=== PATIENT | male | born 1955 | race Caucasian/White ===

== ENCOUNTER → 2018-06-26 | Outpatient (CLI) | payer OTHER ==
[~2018-06-26] MED LIST: FLUT16SP20 NS; PRAV10TA45 PO
--- NOTE | 2018-06-26 10:15 | EKG ---
FACILITY: [facility] - [place] PATIENT NAME: IGNACIO STONER : [id number] MR: [id number]: [id number] EXAM DATE: ORDERING PHYSICIAN: PAULY DE LEÓN TECHNOLOGIST: JEWEL Arauz Reason : PRE-OP Blood Pressure : / mmHG Vent. Rate : 077 BPM Atrial Rate : 077 BPM P-R Int : 148 ms QRS Dur : 092 ms QT Int : 380 ms P-R-T Axes : 037 053 060 degrees QTc Int : 430 ms Normal sinus rhythm Normal ECG No previous ECGs available Confirmed by SHAD DAMIAN ([id number]) on 06/26/2018 4:59:44 PM Referred By: GENET Confirmed By:SHAD DAMIAN
== END ==
LOC: RESP 10:03
PROVIDERS: ATTEND Surgery
DX: E11.9 Type 2 diabetes mellitus without complications (principal)
CPT/HCPCS: 93005

== ENCOUNTER 2018-07-13 00:34 | Day surgery (SDC) | payer OTHER ==
[~2018-07-13] VITALS: Ht 170.2 cm; Wt 92.5 kg
[~2018-07-13 00:34] MED LIST changes: +ASPI-1471 PO; +LISI-362 PO; +METF-450 PO; +MULT-772 PO; +OMEG-11 PO; +PSYL0.5241 PO
[2018-07-13] MEDS ORDERED: NORMOSOL R SOLN(*) 1000 ML BAG 1,000 ML IV PRN (08:45)
[2018-07-13] MEDS ORDERED: LIDOCAINE/SOD BICARB 8.4% SYR ID ONE (08:45)
[2018-07-13 09:01] VITALS: BP 133/87
[2018-07-13] MEDS ORDERED: LIDOCAINE MPF 1% 5 ML VIAL ONE (09:05)
[2018-07-13] MEDS ORDERED: PROPOFOL EMUL(*) 10MG/ML 20 ML 60 ML ONE (09:05)
[2018-07-13 10:06] VITALS: BP 103/73
--- NOTE | 2018-07-13 10:09 | Short(Outpt) Discharge Summary ---
Discharge Summary Reason for Hosp/Final Diag: (1) Encounter for screening colonoscopy Hospital Course & Plan: pt presented for colonoscopy. he tolerated the procedure well. he will be discharged home when criteria met. Departure Discharge to: Home Discharge Instructions Home Meds Reported Medications Lisinopril (LISINOPRIL) 10 Mg Tablet, 10 MG PO QDAY, TAB 07/11/18 Psyllium Husk (METAMUCIL) 0.52 Gm Capsule, 0.52 GM PO BID, CAPSULE 07/10/18 Aspirin (ASPIR 81) 81 Mg Tablet.dr, 81 MG PO QDAY, TAB 07/10/18 [place]-3 Fatty Acids/Fish Oil (FISH OIL 1,000 MG CAPSULE) 1 Each Capsule, 1 EACH PO BID, CAPSULE 07/10/18 Multivitamin W-Minerals/Lutein (CENTRUM SILVER ULTRA MEN'S TAB) 1 Each Tablet, 1 EACH PO QDAY 07/10/18 Metformin Hcl (METFORMIN HCL) 500 Mg Tablet, 1 TAB PO BID, TAB 07/10/18 Fluticasone Propionate (Flonase) 16 Gm [place], 1 [place] NS BID PRN, 0 Refills 02/15/08 Pravastatin Sodium (Pravachol) 10 Mg Tablet, 5 MG PO QDAY, 0 Refills 02/15/08 Diet: Regular Activity: As Tolerated Special Instructions: repeat colonoscopy in 10 yrs. PAULY DE LEÓN July 13, 2018 10:09
--- NOTE | 2018-07-13 10:17 | NUR ---
1006 SBAR REPORT WAS RECEIVED FROM DR. BONILLA AND LANETTE GARCIA. PATIENT IS BREATHING SPONTANEOUSLY AT A MODERATE RATE AND DEPTH. HE ARRIVED ON 10 LITERS OXYMASK. THIS WAS TURNED TO 3 LITERS ON ARRIVAL. BOWEL SOUNDS ARE ACTIVE. HE IS SLEEPING AT THIS TIME. IS IN THE ROOM. 1010 PATIENT WOKE UP AT THIS TIME 1019 DR. DE LEÓN WAS IN TO SEE PATIENT.
--- NOTE | 2018-07-13 10:22 | NUR ---
1022 PATIENT WAS MOVED TO ROOM AIR
[2018-07-13 10:30] VITALS: BP 102/71
--- NOTE | 2018-07-13 10:33 | NUR ---
1031 PATIENT BEGAN DRINKING WATER AND EATING JELLO
--- NOTE | 2018-07-13 10:35 | OPERATIVE REPORT 1 ---
EVENT DATE: July 13, 2018 SURGEON: Romie Kennedy MD ANESTHESIOLOGIST: Rahul Mauro MD ANESTHESIA: MAC. PAPER SORTER: None. PREOPERATIVE DIAGNOSIS Screening colonoscopy. POSTOPERATIVE DIAGNOSES 1. Screening colonoscopy. 2. Internal and external hemorrhoids. 3. Diverticulosis. PROCEDURE PERFORMED Colonoscopy. FLUIDS IV crystalloids. ESTIMATED BLOOD LOSS None. SPECIMENS None. COMPLICATIONS None. INDICATIONS This is a 63-year old male who presents for a screening colonoscopy. His last colonoscopy was 11 years ago and was unremarkable. Risks and benefits of the procedure were explained and consent was signed. DESCRIPTION OF PROCEDURE Patient was taken to the GI suite and placed in the supine position. MAC anesthesia was administered per the Anesthesia team. Patient was placed in the left lateral position. Perianal exam and digital rectal exam were performed. Patient had an external hemorrhoid on the perianal exam. Colonoscope was advanced through the anus and under direct vision to the cecum. The cecum was identified by the appendiceal orifice and the ileocecal valve. The area behind the valve was inspected. The colonoscope was slowly withdrawn. The mucosa was examined along the entire length of the colon and there were no polyps and no masses and no colitis. There were multiple diverticula in the sigmoid colon. These were small diverticula. They were not bleeding in the rectum. Patient had medium internal hemorrhoids. The prep was adequate to identify a polyp 6 mm and larger. Carbon dioxide was suctioned prior to withdrawing the scope. Patient tolerated the procedure well. No complications. MTDD
[2018-07-13 10:40] VITALS: BP 94/76
[2018-07-13 10:41] VITALS: BP 104/68
--- NOTE | 2018-07-13 10:50 | NUR ---
1035 FINISHED DC INSTRUCTIONS WITH PATIENT AND . THEY VERBALIZED UNDERSTANDING 1040 BEGAN DOING ORTHOSTATICS WITH PATIENT. HE DENIES ANY DIZZINESS OR LIGHTHEADEDNESS 1041 PATIENT BEGAN STANDING. HE WAS STABLE ON HIS FEET 1041 PATIENT BEGAN GETTING DRESSED 1045 IV WAS DC'D WITH CATH. INTACT. 1050 PATIENT WAS TAKEN AND WAS AMBULATORY ON DISCHARGE. LUNGS ARE CLEAR. BOWEL SOUNDS WERE HYPERACTIVE. DENIES ANY PAIN OR NAUSEA. SEE DISCHARGE ASSESSMENT.
== END 2018-07-13 10:50 | disposition home or self-care (01) ==
LOC: OR 00:34
PROVIDERS: ATTEND Surgery
DX: Z12.11 Encounter for screening for malignant neoplasm of colon (principal); K64.8 Other hemorrhoids; K57.30 Diverticulosis of large intestine without perforation or abscess without bleeding; E11.9 Type 2 diabetes mellitus without complications
CPT/HCPCS: 00812; 36416; 45378; 82948; J2001; J2704